=== PATIENT | female | born 1985 | race Caucasian/White ===

== ENCOUNTER 2019-08-03 00:52 | Day surgery (SDC) | payer OTHER, SELFPAY ==
[2019-07-24 10:57] VITALS: BMI 50.5
[2019-08-03] VITALS (9 sets, daily range): BP systolic 104–135; BP diastolic 59–87; PULSE 57–85; RESP 12–20; TEMP 36.3–36.6; O2SAT 92–99
--- NOTE | 2019-08-03 06:38 | WPDANESEPPF ---
Anes - Initial Pre Proc Eval Procedure: Operation Date: 08/03/19 08:15 Proposed Procedures p Laparoscopic Bilateral Tubal Ligation With Fallopian Rings - Nurys Jansen MD Date/Time: 08/03/19 06:38 Surgeon: Nurys Jansen MD Pre Op Diagnosis: Desires Sterilization Patient Data Age: 34 Gender: F Height: 5 ft 6 in Weight: 141.97 kg Allergies Allergy/AdvReac Type Severity Reaction Status Date / Time No Known Allergies Allergy Mild Unverified 07/24/19 10:58 Home Medications Medication Instructions Recorded Confirmed Type No Home Medications 07/24/19 07/24/19 History Patient hx anesthesia problems: none Family hx anesthesia problems: none [facility] Past Medical History Medical History (Updated 08/03/19 @ 06:38 by Haile Delaney MD) Morbid obesity Anes - Eval Final PreProcedure Day of Procedure 08/03/19 06:38 Patient weight: morbidly obese Heart: regular rate and rhythm Lungs: clear to auscultation Airway: Mallampati scale class 1 Neurological: alert and oriented Last oral intake: >/= 8 hours ASA classification: III Emergent: no Anesthetic plan: proceed Anesthesia type and monitoring: general ETT and standard monitoring Informed Consent: The patient's anesthetic plan and its attendant risks and benefits were discussed with the patient/family/POA. Questions were solicited and answers provided to the satisfaction of the patient/family/POA.
[2019-08-03] MEDS: LACTATED RINGERS 1,000 ML 30 ML IV CONT ×2 (06:55→09:25)
--- NOTE | 2019-08-03 07:15 | P.HP_ITS ---
History of Present Illness History of Present Illness Consent: Risks, benefits, and alternatives have been discussed and questions answered. Patient agrees to proceed with procedure. Chief complaint: Desires Sterilization Narrative: Melissa Park is a 34 year old female A2 requesting permanent sterilization. All other methods of control reviewed and patient has decided on laparoscopic BTL. Risks due to her obesity were reviewed as well as routine surgical risks including infection, bleeding, perforation or injury to organs (eg. bowel, bladder, ovaries, uterus, tubes), tubal failure with increased risks of ectopic , general anesthesia, and DVT. Patient is aware this is a permanent and irreversible sterilization. Patient voices understanding and agrees to proceed. [facility] Past Medical History Medical History (Updated 08/03/19 @ 07:21 by Nurys Jansen MD) Depression Morbid obesity Spontaneous x 2 Meds Home Medications and Allergies Home Medications Medication Instructions Recorded Confirmed Type No Home Medications 07/24/19 08/03/19 History Allergies Allergy/AdvReac Type Severity Reaction Status Date / Time No Known Allergies Allergy Mild Unverified 08/03/19 07:02 Vital Signs Vital Signs - 24 hr 08/03/19 06:56 Temperature 97.8 F Pulse Rate 74 Respiratory Rate 20 Blood Pressure 126/70 Pulse Oximetry 98 Exam Const: General: alert Nutritional Appearance: obese (BMI 50.7) Orientation/consciousness: patient oriented x3 Resp: Effort & Inspection: normal respiratory effort Auscultation: clear to auscultation bilaterally Cardio: Rate: regular rate Rhythm: regular rhythm GI: GI Palp: Yes Soft to palpation, No Tenderness to palpation present (GI) and No Palpable mass present : External Female Exam: normal external appearance Speculum Exam - Vagina: normal appearance of the vagina and normal vaginal discharge Speculum Exam - Cervix: normal appearance of the cervix Bimanual exam- vagina & uterus: uterine size normal and consistency normal Bimanual Exam- Adnexa, other: normal adnexae and No adnexal tenderness Neuro: General: patient oriented x3 Assessment and Plan Assessment and plan (1) Encounter for sterilization: Code(s): Z30.2 - Encounter for sterilization Status: Acute Assessment and Plan: Plan to proceed with laparoscopic BTL.
[2019-08-03] MEDS: IBUPROFEN IV 800 MG/200 ML 800 MG/200 ML BAG 400 MG IVPB (08:42)
--- NOTE | 2019-08-03 09:07 | PM.OP ---
Procedure Note - Brief Procedure Note - Brief Date of procedure: 08/03/19 Pre-op diagnosis: Desires Sterilization Post-op diagnosis: same Procedure performed: laproscopic BTL with falope rings Anesthesia: GETA Surgeon: Nurys Jansen MD Estimated blood loss (mL): 5 Drains: No Packing: No Pathology: none sent Complications: No immediate complications Condition: stable Disposition: PACU Findings: excessive abdominal adipose tissue limiting view; upper uterus with fibroids; tubes and ovaries appear normal
[2019-08-03] MEDS: HYDROMORPHONE HCL 1 MG/ML INJ 0.5 MG IV PUSH ×3 (09:39→09:57)
--- NOTE | 2019-08-03 10:21 | SUR.PHASEI ---
1015 FAMILY UPDATED IN THE WAITING ROOM.
--- NOTE | 2019-08-03 12:06 | OP_ITS ---
DATE OF PROCEDURE: 08/03/2019 PREOPERATIVE DIAGNOSIS: Requests sterilization. POSTOPERATIVE DIAGNOSIS: Requests sterilization. PROCEDURE: Laparoscopic bilateral tubal ligation with Falope rings. ANESTHESIA: General with ET tube. FINDINGS: The excessive abdominal adipose tissue limits the view of the pelvis and lower abdomen. The upper uterus does have several fibroids, visible on the serosal surface. The tubes and ovaries appear grossly normal. ESTIMATED BLOOD LOSS: 5 cc. PATHOLOGY: None. DESCRIPTION OF PROCEDURE: The patient was taken to the operating room, placed under general anesthesia in the dorsal lithotomy position. She was prepped and draped in the usual sterile fashion. Bivalved speculum was placed in the vagina. Cervix was grasped on the anterior lip with a tenaculum. Belva manipulator was placed. Speculum was removed. Bladder was drained with a red rubber catheter. Attention was turned to the abdomen. A vertical skin incision was made at the base of the umbilicus. The abdomen was tented and the Veress needle placed. Opening patient's pressure was 7 mmHg. Pneumoperitoneum was obtained to a patient pressure of 15 mmHg. The Veress needle was removed. The long 5 mm Optiview trocar was placed. Intraabdominal placement was confirmed with the laparoscope. A horizontal 8 mm skin incision was made 2 cm above the symphysis pubis in the midline. The 8 mm trocar was placed under direct visualization. The patient was placed in Trendelenburg. The blunt probe was used to bring the right tube into the operative view with very limited view. The right tube was grasped in the midportion. A good loop of tube was brought into the applicator and a ring was applied. The blunt probe was then used to bring the left tube up into the operative field. Again with limited visualization due to the adipose tissue covering the bowel, the tube was barely visible and grasped with the ring applicator. A good loop of tube was brought up into the applicator and a ring was applied. All instruments were removed. Pneumoperitoneum was reduced. The skin incisions were closed using 4-0 nylon in an interrupted fashion. Vaginal instruments were removed. The patient was awakened from anesthesia and taken to Recovery in stable condition. Cisco I MT: Janessa
== END 2019-08-03 12:00 | disposition home or self-care (01) ==
PROVIDERS: PCP Family Medicine; Visit Provider Obstetrics & Gynecology Gynecology
PROC: (CPT 58671; principal; 2019-08-03 08:15)
DX: Z30.2 Encounter for sterilization (principal); D25.9 Leiomyoma of uterus, unspecified; E66.01 Morbid (severe) obesity due to excess calories; Z68.42 Body mass index [BMI] 45.0-49.9, adult
CPT/HCPCS: 58671; A4264; A9270; J0330; J1100; J1170; J1741; J2250; J2405; J2704; J2710; J3010; J7120